=== PATIENT | male | born 1980 | race Two or more races ===

== ENCOUNTER 2020-10-24 13:11 | Emergency (ER) | payer SELFPAY ==
[~2020-10-24] VITALS: Ht 172.7 cm; Wt 82.0 kg
[2020-10-24] MEDS ORDERED: LORAZEPAM 2MG/ML CPJ IM STA (13:59)
[2020-10-24] MEDS ORDERED: OLANZAPINE 10 MG/VIAL IM ONE (14:00)
[2020-10-24 14:15] LABS: CLARITY URINE CLEAR (CLEAR); COLOR URINE YELLOW (YELLOW); KETONES URINE NEGATIVE (NEGATIVE); LEUKOCYTE ESTERASE URINE NEGATIVE (NEGATIVE); NITRITE URINE NEGATIVE (NEGATIVE); OCCULT BLOOD URINE NEGATIVE (NEGATIVE); PROTEIN URINE NEGATIVE (NEGATIVE); SPECIFIC GRAVITY URINE 1.003 (1.005-1.030); UROBILINOGEN URINE 0.2 E.U./dL (0.2-1.0)
[2020-10-24 14:29] LABS: BASOPHILS % 0.5 % (0.0-2.0); EOSINOPHILS % 2.5 % (0.0-5.0); HEMATOCRIT. 38.5 % (42.0-52.0); HEMOGLOBIN. 13.3 g/dL (14.0-18.0); LYMPHOCYTES % 50.2 % (20.0-50.0); MEAN CORPUSCULAR VOLUME 95.1 fL (80.0-94.0); MEAN PLATELET VOLUME 7.5 fl (7.4-10.4); MONOCYTES % 10.8 % (2.0-8.0); PLATELET 302 x1000/uL (130-400); RED BLOOD CELL COUNT 4.05 mill/uL (4.7-6.1); RED CELL DISTRIBUTION WIDTH 14.3 % (11.6-14.6)
[2020-10-24 14:35] LABS: CHLORIDE 112 mEq/L (98-107)
[2020-10-24 14:47] LABS: *BENZODIAZEPINES SCREEN URINE NEGATIVE (NEGATIVE); *COCAINE SCREEN URINE NEGATIVE (NEGATIVE); CANNABINOID URINE SCREEN NEGATIVE (NEGATIVE); METHADONE URINE SCREEN NEGATIVE (NEGATIVE); OPIATES URINE SCREEN NEGATIVE (NEGATIVE); PHENCYCLIDINE URINE SCREEN NEGATIVE (NEGATIVE)
[2020-10-24 14:48] LABS: *BARBITURATES SCREEN URINE NEGATIVE (NEGATIVE)
[2020-10-24 14:52] LABS: *AMPHETAMINES SCREEN URINE NEGATIVE (NEGATIVE)
[2020-10-24 15:01] LABS: ETHANOL BLOOD 357 mg/dL
[2020-10-24] MEDS ORDERED: LORAZEPAM 2MG/ML CPJ IV ONE (18:30)
[2020-10-24] MEDS ORDERED: DIPHENHYDRAMINE 50MG/ML VIAL IV ONE (18:30)
[2020-10-24] MEDS ORDERED: HALOPERIDOL LACTATE 5MG/ML VIAL IM ONE (18:30)
[2020-10-25 13:30] VITALS: BP 138/85
== END 2020-10-25 14:01 | disposition home or self-care (01) ==
LOC: ER 13:11
DX: R45.851 Suicidal ideations (principal); F32.9 Major depressive disorder, single episode, unspecified; F17.200 Nicotine dependence, unspecified, uncomplicated; R45.1 Restlessness and agitation; Z20.822 Contact with and (suspected) exposure to COVID-19; R51.9 Headache, unspecified
CPT/HCPCS: 36415; 70450; 70486; 71111; 80053; 80305; 80320; 81003; 82962; 85025; 87426; 96372; 96374; 96375; 99285; J1200; J1630; J2060; J3490; Z7610; A4315; G0480